=== PATIENT | male | born 1955 | race Caucasian/White ===

== ENCOUNTER 2022-10-29 08:42 | Outpatient (CLI) | payer MEDICARE, OTHER, SELFPAY | END 2022-10-29 08:43 | disposition home or self-care (01) | LOC: NFLDREF 10-30 09:26 | PROVIDERS: PCP Family Medicine; Referring Provider Family Medicine; Visit Provider Family Medicine | DX: Z00.00 Encounter for general adult medical examination without abnormal findings (principal); I10 Essential (primary) hypertension; E78.5 Hyperlipidemia, unspecified; R73.03 Prediabetes; Z68.33 Body mass index [BMI] 33.0-33.9, adult | CPT/HCPCS: 80053; 80061; 82043; 82570 ==

== ENCOUNTER 2023-02-18 10:28 | Outpatient (CLI) | payer MEDICARE, OTHER, SELFPAY | END 2023-02-18 10:29 | disposition home or self-care (01) | PROVIDERS: PCP Family Medicine; Visit Provider Family Medicine | DX: R73.03 Prediabetes (principal); I10 Essential (primary) hypertension; E78.5 Hyperlipidemia, unspecified; N28.1 Cyst of kidney, acquired; R53.83 Other fatigue; F41.9 Anxiety disorder, unspecified; Z12.5 Encounter for screening for malignant neoplasm of prostate; E66.01 Morbid (severe) obesity due to excess calories; M79.641 Pain in right hand; M79.642 Pain in left hand; G47.33 Obstructive sleep apnea (adult) (pediatric) | CPT/HCPCS: 80053; 84153; 86039; 86140; 86431; 86812 ==

== ENCOUNTER 2024-02-10 13:49 | Outpatient (CLI) | payer MEDICARE, SELFPAY | END 2024-02-10 13:50 | disposition home or self-care (01) | PROVIDERS: PCP Family Medicine; Visit Provider Family Medicine | DX: I10 Essential (primary) hypertension (principal); E78.5 Hyperlipidemia, unspecified | CPT/HCPCS: 80053; 80061 ==

== ENCOUNTER 2025-01-28 08:40 | Outpatient (CLI) | payer OTHER, SELFPAY | END 2025-01-28 08:41 | disposition home or self-care (01) | LOC: NFLDREF 02-01 03:57 | PROVIDERS: PCP Family Medicine; Referring Provider Family Medicine; Visit Provider Family Medicine | DX: E78.2 Mixed hyperlipidemia (principal) | CPT/HCPCS: 80053; 80061 ==